=== PATIENT | female | born 1985 | race Caucasian/White ===

== ENCOUNTER 2024-04-22 07:33 | Day surgery (SDC) | payer BC ==
[2024-04-18 10:36] LABS: Absolute Basophils 0.1 K/uL (0-0.5); Absolute Eosinophils 0.1 K/uL (0-0.5); Absolute Lymphocytes (CBC) 1.5 K/uL (0.7-4.9); Absolute Monocytes 0.4 K/uL (0.1-1.3); Absolute Neutrophil 3.7 K/uL (1.8-8.0); Basophils % 1.2 % (0-1.3); Eosinophils % 2.4 % (0-4.4); Hematocrit 41.1 % (36.0-45.0); Hemoglobin 13.4 g/dL (12.0-15.0); Lymphocytes % 25.8 % (15.3-44.8); MCH 28.1 pg (27.0-35.0); MCHC 32.6 g/dL (32.0-36.0); MCV 86.1 fL (80-100); MPV 8.1 fL (7.6-11.3); Monocytes % 6.3 % (3.3-12.3); Neutrophils % 64.3 % (41.7-73.7); Platelets 273 thou/uL (152-406); RBC Red Blood Cell Count 4.78 M/uL (3.86-4.86); Red Cell Distribution Width 13.6 % (12.1-15.2)
[2024-04-18 10:56] LABS: ALT/SGPT 39 U/L (13-56); AST/SGOT 21 U/L (15-37); Albumin 3.6 g/dL (3.4-5.0); Alkaline Phosphatase 124 U/L (45-117); Anion Gap 6.9 mEq/L (5.0-15.0); BUN Blood Urea Nitrogen 10 mg/dL (7-18); Bicarbonate 27 mEq/L (21-32); Bilirubin Total 0.4 mg/dL (0.2-1.0); Globulin 3.7 g/dL (2.3-3.5); Glomerular Filtration Rate 106 ml/min (=/>90); Glucose Level 90 mg/dL (74-106); Lipase 100 U/L (13-75); Potassium 3.9 mEq/L (3.5-5.1); Protein, Total 7.3 g/dL (6.4-8.2); Sodium Level 139 mEq/L (136-145)
[2024-04-18 10:57] LABS: Bilirubin Direct < 0.2 mg/dL (0-0.2); Bilirubin Indirect, Calculated 0.2 mg/dL (0.2-0.8)
[2024-04-22] MEDS ORDERED: CEFOXITIN SODIUM 1 GM/VIAL ONE (07:50)
[2024-04-22] MEDS ORDERED: Ringers Lactate 1,000 ML IV ONE (07:50)
[2024-04-22] MEDS ORDERED: LIDOCAINE 1% MPF 5 ML VIAL ONE (08:00)
[2024-04-22] MEDS ORDERED: ROCURONIUM 50 MG/5 ML VIAL IV ONE (08:00)
[2024-04-22] MEDS ORDERED: ONDANSETRON 4 MG/2 ML VIAL ONE (08:00)
[2024-04-22] MEDS ORDERED: GLYCOPYRROLATE 0.2 MG/ML SYR ONE ×3 (08:00→09:01)
[2024-04-22] MEDS ORDERED: dexAMETHasone 10 MG/ML VIAL ONE (08:00)
[2024-04-22] MEDS ORDERED: propofoL 200 MG/20 ML VIAL IV ONE (08:00)
[2024-04-22] MEDS ORDERED: FENTANYL CITR 100 MCG/2 ML ONE (08:00)
[2024-04-22] MEDS ORDERED: MIDAZOLAM HCL 2 MG/2 ML INJ ONE (08:00)
[2024-04-22] MEDS ORDERED: KETOROLAC 30 MG/ML INJ ONE (08:00)
[2024-04-22] MEDS ORDERED: NEOSTIGMINE 1 MG/ML -10 ML VIAL ONE (09:01)
--- NOTE | 2024-04-22 09:08 | P.BOP ---
Preoperative diagnosis: RUQ abd pain, biliary dyskinesia Postoperative diagnosis: same plus umbilical hernia Primary procedure: 1. Laparoscopic cholecystectomy Secondary procedure: 2. Open repair of umbilical hernia Estimated blood loss: <10cc Specimen: GB, hernia sac Findings: as above Anesthesia: General Complications: None Transferred to: Recovery Room Condition: Good
[2024-04-22 10:12] VITALS: O2SAT 100
[2024-04-22] MEDS: HYDROCODONE/APAP 7.5/325 MG TAB ONE (10:21)
[2024-04-22 11:02] VITALS: BP 128/73; TEMP 97.4
--- NOTE | 2024-04-23 05:00 | OP ---
Date of Procedure: 04/22/2024 Surgeon: Jacob Delatorre MD Preoperative Diagnoses: 1.Right upper quadrant abdominal pain. 2.Biliary dyskinesia. Postoperative Diagnoses: 1.Right upper quadrant abdominal pain. 2.Biliary dyskinesia. 3.Umbilical hernia. Procedure: 1.Laparoscopic cholecystectomy. 2.Open repair of umbilical hernia. Estimated Blood Loss: Less than 10 mL. Specimen: Gallbladder and hernia sac. Anesthesia: General plus local. Indications: This is a case of a 38-year-old patient who comes to us with above diagnoses. Fully ex plained the benefits, alternatives, and risks of laparoscopic possible open cholecystectomy, which in clude, but not limited to infection, bleeding, damage to adjacent structures, anesthesia complication , [place], and even . She also understands this may not relieve any symptoms. She might need more t arias one surgical intervention. She understood, signed a consent. Description Of Procedure: The patient was brought to the operating room and placed in supine positio n. Anesthesia was without complication. Abdominal area was prepped and draped in the usual sterile fashion. A time-out was called. After that, local anesthesia was applied and sharp incision was mad e in the periumbilical region. Immediately, we found a small hernia, so we removed the hernia sac. The fascial edges seems to be intact, so we placed Vicryl #1 inside of the fascia. Mattie trocar was carefully introduced. Pneumoperitoneum was obtained. After that, I proceeded to place three more t rocars, 5 mm each one of them, one in the epigastric area, two in the right upper quadrant under dire ct visualization. This allowed me to put a grasper in the fundus of the gallbladder, another grasper in the infundibulum, retracting the gallbladder in the inferolateral fashion exposing the triangle o f Calot and obtaining critical view. Cystic duct and cystic artery were clearly isolated and freed c ircumferentially, and a connection between those and the gallbladder were clearly identified. I proc eeded to ligate those by using at least three clips proximal, one clip distal, ligation in middle, sa me was done with the cystic artery. No bile leak. No bleeding. The gallbladder was removed from th e liver using Bovie cauterizer and removed from abdominal cavity using EndoCatch through the umbilica l incision. The area was inspected once again. No bile leak. No bleeding. At that moment, I proce eded to remove the trocars under direct vision. Deflated the pneumoperitoneum. Closed the fascia an d umbilical hernia with #1 Vicryl. Irrigated subcutaneous tissue, closed with 3-0 chromic and skin i n a subcuticular fashion with 3-0 chromic and Steri-Strips on top. Sponge count and instrument count s were correct. The patient tolerated the procedure well. The patient was sent to recovery in [facility] condition. Condition: Stable. Disposition: Home. Activity: As tolerated. No heavy lifting. Follow up in my office in 1 week. Call for appointment [phone]. Keep area dry for 48 hours, then m ay shower. Keep Steri-Strips intact. RU/DIPIKA Voice ID: [id number] Report ID: [id number]
== END 2024-04-22 10:47 | disposition home or self-care (01) ==
LOC: OR 07:33
PROVIDERS: ATTEND Surgery
PROC: 0FT44ZZ Resection of Gallbladder, Percutaneous Endoscopic Approach (ICD-10-PCS; principal; 2024-04-22 08:30)
DX: K80.10 Calculus of gallbladder with chronic cholecystitis without obstruction (principal); K82.8 Other specified diseases of gallbladder; K82.4 Cholesterolosis of gallbladder
CPT/HCPCS: 85025; 80048; 36415; 80076; 88302; 88304; 83690; 47562; J2704; J2710; J2001; J2250; J3010; J1100; J0694; J2405; J7120